=== PATIENT | female | born 1965 | race Caucasian/White ===

== ENCOUNTER 2021-06-20 08:33 | Outpatient (REF) | payer OTHER, SELFPAY ==
--- NOTE | ~2021-06-20 | CT_ITS ---
EXAMINATION: CT CHEST WITHOUT CONTRAST CLINICAL INFORMATION: Dyspnea. COMPARISON: Chest CT from 04/27/2020 TECHNIQUE: Multidetector volumetric CT imaging of the chest was done. Axial MIP volume rendering provided. Sagittal and coronal reformatted images were obtained. This CT examination was performed using dose optimization techniques as appropriate, variously including the following: *Automated exposure control *Adjustment of mA and/or kV according to patient size (this includes techniques or standardized protocols for targeted exams where dose is matched to indication/reason for exam; i.e. extremities or head) *Use of iterative reconstruction technique DLP: 288 mGy-cm FINDINGS: LUNGS AND PLEURA: Trachea and central airways are widely patent and normal in caliber. Old, small calcified granulomas in the right lower lobe. A punctate noncalcified nodule in the posterior right lung apex is stable compared to 04/27/2020 (image 70, series 3). The 0.2 cm noncalcified nodule of the superior segment of the right lower lobe is unchanged (image 205, series 7). No interval amount of a suspicious lung nodule, mass or pleural effusion. No evidence of pulmonary metastasis. There are some subtle hazy peripheral opacities of minimal atelectasis or perhaps sequela of mild pneumonitis of lower lobes and right middle lobe. Left upper lobe streaky and groundglass opacity has the appearance of radiation-induced fibrosis with pneumonitis and mild traction bronchiectasis. CARDIOVASCULAR: The heart size is normal. No pericardial effusion. Aortic valve is mildly calcified. The chronically dilated ascending aorta measures 4.3 cm transverse, 4.4 cm AP diameter, unchanged compared to 04/27/2020. Aortic arch and tortuous descending aorta are normal in caliber. Pulmonary arteries are normal in size. MEDIASTINUM AND LOWER NECK: Small sliding-type hiatal hernia. No mediastinal mass. No evidence of a clinically significant thyroid nodule. LYMPHATICS: Postoperative soft tissue stranding of the left axillary area. No recurrent axillary lymphadenopathy. No pathologic sized mediastinal or hilar lymph nodes. No internal mammary lymphadenopathy. UPPER ABDOMEN: Status post cholecystectomy. Adrenal glands are unremarkable. SKELETAL AND CHEST WALL: Status post left breast surgery with implant in place. Multilevel mild and moderate discovertebral degenerative changes of the thoracic spine. No suspicious lytic or osteoblastic lesion.. CT/CT chest wo con IMPRESSION: * Compared to 04/27/2020, interval left breast surgery and likely radiation treatment. The streaky opacity in the left upper lobe with mild bronchiectasis is likely secondary to radiation therapy involving the left breast/axillary area. Recommend correlation with details of patient's therapy. There is no recurrent axillary lymphadenopathy. * No evidence of metastatic disease. * Dilated ascending thoracic aorta (4.4 cm diameter) is unchanged in size compared to 04/27/2020. * Small hiatal hernia.
== END 2021-06-20 08:34 | disposition home or self-care (01) ==
LOC: HO.CT 08:33
PROVIDERS: Visit Provider Radiology Radiation Oncology
DX: R06.00 Dyspnea, unspecified (principal)
CPT/HCPCS: 71250